=== PATIENT | female | born 1935 | race Caucasian/White ===

== ENCOUNTER 2022-06-22 16:45 | Emergency (ER) | payer OTHER ==
[~2022-06-22] VITALS: Ht 152.4 cm; Wt 49.9 kg
[2022-06-22] MEDS ORDERED: TDAP DIPH,PERTUSS,TET VAC/PF 0.5 ML DISP.SYRIN IM ONE ×2 (17:00→17:13)
[2022-06-22] MEDS ORDERED: ACETAMINOPHEN 325 MG TABLET PO ONE (17:00)
--- NOTE | 2022-06-22 17:11 | NUR ---
Pt seen by . Safety measures in place. Will continue to monitor.
[2022-06-22] MEDS ORDERED: ACETAMINOPHEN 325 MG TABLET ONE (17:13)
--- NOTE | 2022-06-22 18:53 | NUR ---
Patient discharged to home in stable condition. Written and verbal after care instructions given. Patient verbalizes understanding of instructions. Pt has copies of labs and imaging reports. Stressed follow up or return to ER for worsening s/s. Transferred patient via wheelchair.
[2022-06-22 18:54] VITALS: BP 160/67
== END 2022-06-22 18:55 | disposition home or self-care (01) ==
LOC: ER 16:48 → EDBD 16:48 → ER 18:55
DX: S01.81XA Laceration without foreign body of other part of head, initial encounter (principal); S80.211A Abrasion, right knee, initial encounter; I10 Essential (primary) hypertension; I48.91 Unspecified atrial fibrillation; W01.0XXA Fall on same level from slipping, tripping and stumbling without subsequent striking against object, initial encounter; Y93.89 Activity, other specified; Y92.89 Other specified places as the place of occurrence of the external cause; Y99.8 Other external cause status
CPT/HCPCS: 70450; 72125; 90715; A4663